=== PATIENT | male | born 1980 | race Two or more races ===

== ENCOUNTER 2022-10-13 05:39 | Day surgery (SDC) | payer OTHER ==
[~2022-10-13] VITALS: Ht 167.6 cm; Wt 80.7 kg
== END 2022-10-13 15:00 | disposition home or self-care (01) ==
LOC: CIR.AMB 05:39
PROVIDERS: ATTEND Urology
DX: N47.1 Phimosis (principal); N47.7 Other inflammatory diseases of prepuce; Z91.013 Allergy to seafood; E11.9 Type 2 diabetes mellitus without complications; Z20.822 Contact with and (suspected) exposure to COVID-19